=== PATIENT | female | born 1995 | race African-American/Black ===

== ENCOUNTER 2017-03-12 17:30 | Emergency (ER) | payer OTHER ==
[2017-03-12 20:16] LABS: Hematocrit 37 % (35-47); Hemoglobin 12.3 g/dl (12.0-16.0); Mean Corpuscular HGB Conc 34 g/dl (31-36); Mean Corpuscular Hemoglobin 31 pg (27-31); Mean Corpuscular Volume 92 fL (80-97); Mean Platelet Volume 7 um3 (7.4-10.4); Red Blood Count 3.99 10^6/ul (4.0-5.4); Red Cell Distribution Width 13 % (10.5-15); White Blood Count 4.6 10^3/ul (3.5-10.8)
[2017-03-12 20:18] LABS: Add Diff/Slide Review? Slide Review Added; Comments Flag Yes
[2017-03-12 20:30] LABS: ALT 149 U/L (7-52); AST 51 U/L (13-39); Albumin 4.1 g/dL (3.2-5.2); Alkaline Phosphatase 103 U/L (34-104); Amylase 65 U/L (29-103); Anion Gap 6 mmol/L (2-11); BUN/Creatinine Ratio 12.6 (8-20); Blood Urea Nitrogen 13 mg/dL (6-24); C Reactive Protein 2.19 mg/L (< 5.00); CO2 Carbon Dioxide 26 mmol/L (22-32); Calcium 9.3 mg/dL (8.6-10.3); Chloride 104 mmol/L (101-111); EGFR African American 87.9 (>60); EGFR Non-African American 68.3 (>60); Globulin 3.5 g/dL (2-4); Glucose 82 mg/dL (70-100); Lipase 20 U/L (11.0-82.0); Potassium 3.8 mmol/L (3.5-5.0); Sodium 136 mmol/L (133-145); Total Protein 7.6 g/dL (6.4-8.9)
[2017-03-12] MEDS: NS 0.9% 1000 ML* 2,000 ML IV ONE (20:56)
--- NOTE | 2017-03-12 21:17 | RAD ---
INDICATION: Abdominal pain COMPARISON: None TECHNIQUE: Longitudinal and transverse scans of the right upper quadrant were obtained. Doppler interrogation of the hepatic and portal venous system was performed. FINDINGS: Liver: The liver is mildly enlarged. There are no focal masses. The liver measures 18.7 cm in cephalocaudal dimension. Vessels: There is normal hepatic and portal venous flow. Bile ducts: There is no evidence of intrahepatic or extrahepatic ductal dilatation. The common duct measures 0.1 cm. Gallbladder: The sonographic appearance of the gallbladder is normal. There is no evidence of cholelithiasis, thickening of the gallbladder wall, or pericholecystic fluid. Pancreas: The visualized pancreas appears normal Right kidney: The right kidney is normal in size and echogenicity. There are no masses or calculi. There is no evidence of hydronephrosis. The right kidney measures 10.7 x 5.1 x 6.2 cm. IVC and aorta: The aorta and superior vena cava appear normal. Fluid: There is no ascites. Other: None. IMPRESSION: MILD HEPATOMEGALY, OTHERWISE NEGATIVE
[2017-03-12 21:56] LABS: Eosinophils % 1 % (0-6); Neutrophil % 27 % (38-83); RBC Morphology Normal (Normal); Reactive Lymph % 13 % (0-6)
[2017-03-12] MEDS ORDERED: Ketorolac INJ* 30 MG/ML 1 ML VIAL ONE (22:11)
[2017-03-12] MEDS ORDERED: Ketorolac INJ* 30 MG/ML 1 ML VIAL IV PUSH ONE (22:33)
[2017-03-12 22:35] VITALS: BP 113/67
--- NOTE | 2017-04-20 04:21 | ED ---
Natalia Montes Rebecca, scribed for Jimmy Doe MD on 03/12/17 at 1918 . Abdominal Pain/Female - HPI Summary HPI Summary: Pt is a 21 y/o F who presents to ED c/o abdominal pain. Earlier, the pain was more in the RUQ though it is now more located in the epigastric region. Pain is currently moderate, ranked 5/10 and characterized as sharp. Additionally c/o abdominal bloating, fatigue, nausea and subjective fever. Denies V/D, dysuria, vaginal bleeding or discharge, CP, SOB, rash and back pain. Pain was not associated with food. Pt was diagnosed with [place] 5 days ago and had a follow up appointment today [facility] during which she was told her liver enzymes were elevated and she was tender to palpation in the RUQ. After the appointment, the pain significantly increased in intensity, which is why she presents today. States that her symptoms associated with [place] have improved significantly. - History of Current Complaint Chief Complaint: EDAbdPain Stated Complaint: ABD PAIN Hx Obtained From: Patient Onset/Duration: Still Present Severity Initially: Severe Severity Currently: Moderate Pain Intensity: 5 Pain Scale Used: 0-10 Numeric Location: Discrete At: RUQ, Epigastric Radiates: No Character: Sharp Aggravating Factor(s): Nothing Alleviating Factor(s): Nothing Associated Signs and Symptoms: Positive: Fever, Nausea, Other: - Fatigue. Negative: Chest Pain, Vaginal Bleeding, Vaginal Discharge, Vomiting, Diarrhea Allergies/Adverse Reactions: Allergies Allergy/AdvReac Type Severity Reaction Status Date / Time No Known Allergies Allergy Verified 03/12/17 17:34 PMH/Surg Hx/FS Hx/Imm Hx Endocrine/Hematology History: Denies: Hx Diabetes Cardiovascular History: Denies: Hx Hypertension EENT History: Reports: Other - Hx [place] Infectious Disease History: No Infectious Disease History: Denies: Traveled Outside the [place] in Last 30 Days - Family History Known Family History: Positive: Hypertension, Diabetes, Other - Stroke ( grandmother) - Social History Occupation: Student Alcohol Use: None Substance Use Type: Reports: None Smoking Status (MU): Never Smoked Tobacco Review of Systems Positive: Fever, Fatigue Negative: Chest Pain Negative: Shortness Of Breath Positive: Abdominal Pain, Nausea, Other - Abdominal bloating. Negative: Vomiting, Diarrhea Positive: other - NEGATIVE: Vaginal bleeding. Negative: dysuria, discharge Positive: Other - NEGATIVE: Back pain Negative: Rash All Other Systems Reviewed And Are Negative: Yes Physical Exam - Summary Physical Exam Summary: Appearance: Well-appearing, Well-nourished Skin: Warm Eyes: Normal ENT: Normal Neck: Supple, nontender, bilateral cervical lymphadenopathy Respiratory: Clear to auscultation Cardiovascular: Normal Abdomen: Soft, RUQ liver margin palpated 1-2 cm below the costal margin and there is no evidence of splenomegaly Bowel: Present Musculoskeletal: Normal, Strength/ROM Intact Neurological: Normal, A&Ox3 Psychiatric: Normal Triage Information Reviewed: Yes Vital Signs On Initial Exam: Initial Vitals Temp Pulse Resp BP Pulse Ox 97.7 F 67 17 123/76 100 03/12/17 17:32 03/12/17 17:32 03/12/17 17:32 03/12/17 17:32 03/12/17 17:32 Vital Signs Reviewed: Yes Diagnostics - Vital Signs Vital Signs Temp Pulse Resp BP Pulse Ox 03/12/17 17:32 97.7 F 67 17 123/76 100 - Laboratory Result Diagrams: 03/12/17 20:08 03/12/17 20:08 Lab Statement: Any lab studies that have been ordered have been reviewed, and results considered in the medical decision making process. - Ultrasound No standard instances Ultrasound Interpretation: Positive (See Comments) - Abdomen US: MILD HEPATOMEGALY, OTHERWISE NEGATIVE ED physician reviewed radiology report and agrees. Ultrasound Interpretation Completed By: Radiologist Abdominal Pain Fem Course/Dx - Course Course Of Treatment: Test results from 03/07 at the [facility] reveal: Alk phos of 170, AST of 169, ALT of 336, and Total Bili of 0.6 with other labs within normal limits. Labs improved on redraw here in the ED. US negative for any pathology, shows only mild hepatomegaly. Pt instructed to follow up with PCP. She understands and agrees with instructions. - Diagnoses Provider Diagnoses: Abdominal pain, Elevated liver enzymes Discharge - Discharge Plan Condition: Stable Disposition: HOME Patient Education Materials: Acute Abdominal Pain (ED), Mononucleosis (ED) Referrals: [facility] [Primary Care Provider] - 7 Days Additional Instructions: PLEASE MAKE AN APPOINTMENT TO SEE YOUR PRIMARY CARE DOCTOR TO BE SEEN WITHIN 1 WEEK. PLEASE RETURN TO THE ED FOR ANY WORSENING OR CONCERNING SYMPTOMS. The documentation as recorded by the scribe, DiFabio,Kayla accurately reflects the service I personally performed and the decisions made by me, Jimmy Doe MD.
== END 2017-03-12 22:35 | disposition home or self-care (01) ==
LOC: ED 17:30
DX: R10.11 Right upper quadrant pain (principal); R94.5 Abnormal results of liver function studies; R53.83 Other fatigue; R50.9 Fever, unspecified; R11.0 Nausea
CPT/HCPCS: 36415; 76705; 80053; 82150; 83690; 83735; 84702; 85025; 85610; 85730; 86140; 86850; 86900; 86901; 96374; 96375; 99282; J1885